=== PATIENT | male | born 1970 | race Two or more races ===

== ENCOUNTER 2024-02-22 23:39 | Emergency (ER) | payer OTHER, MEDICAID ==
[~2024-02-22] VITALS: Ht 170.2 cm; Wt 99.0 kg
[2024-02-23 00:03] VITALS: BP 134/62; PULSE 88; RESP 16; TEMP 98.7; O2SAT 98
[2024-02-23] MEDS ORDERED: CARB6.5S44 OT (02:27)
[2024-02-23] MEDS ORDERED: OFL50TS OT (02:27)
[2024-02-23] MEDS: HYDROcodone-ACET 5/325MG TAB PO ONE (02:49)
[2024-02-23] MEDS: IBUPROFEN 800 MG TAB PO ONE (02:54)
== END 2024-02-23 03:00 | disposition home or self-care (01) ==
LOC: ER 23:39
DX: H61.22 Impacted cerumen, left ear (principal)

== ENCOUNTER 2025-05-31 16:02 | Emergency (ER) | payer OTHER, MEDICAID ==
[~2025-05-31] VITALS: Ht 170.2 cm; Wt 109.6 kg
[~2025-05-31 16:02] MED LIST: CARB6.5S44 OT; OFL50TS OT
[2025-05-31 16:05] VITALS: BP 150/92; PULSE 88; RESP 12; TEMP 97.6; O2SAT 96
--- NOTE | 2025-05-31 16:43 | ED.PDOC ---
General HPI Comments HPI: This is a 54 year old male presenting to the ED with chief complaint of hematuria. Patient reports that he had an episode of hematuria this morning with associated lower abdominal cramping that occurred first. Patient relays that since then, all his symptoms have resolved, but his was worried and advised him to come to the ED. Patient states he is currently on dialysis and does not make much urine anyway. Patient denies any dysuria, flank pain, abdominal pain, fever, or chills. Past Medical History: HTN, HLD, DM, CKF Past Surgical History: Denies Social History: Denies smoking, ETOH, or drug use. Medications: Reviewed Allergies: NKDA WALKER: HEMATURIA. PAINLESS ONE TIME AFTER DIALYSIS TODAY. HPI: Poor Historian. REVIEW OF SYSTEMS: CONSTITUTIONAL: Denies acute: fever, diaphoresis, chills, generalized weakness. HEAD: Denies acute: headache, photophobia Eyes: Denies acute: Double vision, vision loss, eye pain, eye discharge. EARS: Denies acute: tinnitus, hearing loss, ear discharge, ear pain, THROAT: Denies acute: sore throat, swelling, difficulty swallowing , pain with swallowing, change in voice. NECK: Denies acute: neck pain, neck swelling, stiff neck. HEART: Denies acute : chest pain, palpitations, LUNGS: Denies acute: SOB, wheezing, cough, hemoptysis ABDOMEN: Denies acute: abdominal pain, Nausea, Vomiting, diarrhea, melena , hematemesis, hematochezia SKIN: Denies acute: rash, redness, lesions, itchiness. EXTREMITIES: Denies acute: calf pain, numbness, tingling, weakness, denies pain in extremity. Denies acute: Low back pain. Neuro: Denies acute: focal neurological deficit, motor or sensory focal neurological deficit, tremors, seizure like activity, confusion, dizziness, change in mental status, loss of bowel or bladder function, cauda equina like symptoms. : Denies acute: dysuria, flank pain, increase in urinary frequency. PSYCH: Denies acute: hallucination, suicidal ideation, homicidal ideation. PHYSICAL EXAM: General: ----no----acute distress, awake and alert. Head: normocephalic, atraumatic. No raccoon's eyes, no nunez sign. Neck: supple, trachea is midline, no swelling. Throat: Normal phonation. Eyes:, no erythema, no purulent discharge, no proptosis, no icterus. Heart: regular rate, regular rhythm, no significant murmur appreciated. Lungs: no apparent respiratory distress, Able to speak in full sentences. No wheezing, no rhonchi, no crackles. No stridors Clear to auscultation bilaterally. Abdomen: non tender to palpation, non distended, soft, no guarding, no rebound, + bowel sounds. Neuro: Awake, Alert, oriented to name, self, situation, follows commands GCS=15. Speech is normal. Skin: no petechia, no purpura, no cyanosis, non-pale, not jaundice. Lower extremities: --1/3 b/l - Pitting edema no deformity, no focal swelling, no calf TTP. Makes eye contact. moves all four extremities. Face: no apparent facial droop. Ambulating in the ED independently. ED COURSE: DISCLAIMER: This medical document was created using an electronic medical record system with voice recognition software and computerized dictation system. Although this document has been carefully reviewed, there might still be some phonetic and typographical errors. Occasional wrong-word or "sound-alike" substitutions may have occurred due to the inherent limitations of voice recognition software. These areas are purely typographical due to imperfections of the software programs and do not reflect any compromise in the patient's medical care. Please read the chart carefully and recognize, using context, where these substitutions have occurred. Chief Complaint: Urinary Time Seen by MD: 16:40 Reviewed notes: Medications, Allergies Allergies: Coded Allergies: NO KNOWN ALLERGIES (Unverified , 02/23/24) Home Meds Active Scripts Ofloxacin (Otic) (FLOXIN OTIC) [address], 1 DROP OT DAILY for 7 Days, #3.5 ML Instill 10 drops into left ear once daily x7 days Prov:ELIANE DIAZ 02/23/24 Carbamide Peroxide (Debrox) 6.5 % Alyssa, 6.5 % OT BID for 3 Days, #2 ML Instill 5 drops into left ear twice daily up to 3 days Prov:ELIANE DIAZ 02/23/24 Information Source: Patient Mode of Arrival: Ambulatory Was a procedure done? Was a procedure done?: No X-Ray, Labs, Meds, VS Vital Signs Date Time Temp Pulse Resp B/P (MAP) Pulse Ox O2 Delivery O2 Flow Rate FiO2 05/31/25 16:05 97.6 88 12 150/[address] [address] Ph: [phone] DIAGNOSTIC IMAGING Diagnostic Imaging Report : [id number] Signed PATIENT: RENAY MANZANO TYRONEACCT: [id number] UNIT: [id number] : 1970 LOC: ER ROOM / BED: / AGE / SEX: 54 / M ADM STATUS: REG ER SERVICE 41 ORDERING PHYSICIAN: JULIUS NIÑO DO PROCEDURE(s): ABPL - CT AB PEL WO CON-NO ORAL OR IV REASON: HEMATURIA, PAINLESS, ESRD ORDER NUMBER(s): [id number], ACCESSION NUMBER(s): [id number] EXAM: CT CT AB PEL WO CON-NO ORAL OR IV History: HEMATURIA, PAINLESS, ESRD Comparison Study: None TECHNIQUE: Multidetector CT of the abdomen was performed from lung bases to pubic symphysis. Imaging was performed without IV contrast. Axial, coronal and sagittal multiplanar reformats were obtained from the axial data set by the technologist. Radiation Dose Information: CT Dose: CTDI volume is 24.2 mGy. Dose-length product is 1400.59 mGy*cm FINDINGS: Evaluation of solid organs is limited due to lack of intravenous contrast use. FINDINGS: Lung Bases: No acute or significant lung base finding. Normal heart size. No pleural or pericardial effusion. Liver: The liver is normal in size. No focal lesions. Gallbladder and Biliary Tree: Unremarkable Spleen: Unremarkable Pancreas: The pancreas is grossly normal in appearance. Adrenal Glands: Unremarkable Kidneys: Multiple bilateral renal cysts noted. Renal vascular calcification seen.4 Bladder: Grossly unremarkable for degree of distention. Bowel: The stomach is grossly normal in appearance. Small bowel and colon are normal in caliber and distribution. The appendix is not visualized; however, no secondary findings of acute appendicitis identified. Ascites: Absent Lymphadenopathy: No mesenteric, retroperitoneal or periportal lymphadenopathy. Abdominal Wall and Mesentery: Unremarkable. Vasculature: The visualized abdominal aorta is normal in size and caliber. Evaluation of abdominal and pelvic vessels is limited due to lack of intravenous contrast. Pelvic Organs: Unremarkable Musculoskeletal: Severe degenerative disc disease is seen at L5-S1 with grade 1/4 anterolisthesis. Soft tissues: Unremarkable IMPRESSION: 1. Multiple renal cysts, possible polycystic kidney disease. 2. No acute intra-abdominal or pelvic disease. 3. Degenerative spine disease. 4. Radiation optimization: All CT scans at this facility use at least one of these dose optimization techniques: automated exposure control mA and/or kV adjustment per patient size (includes targeted exams where dose is matched to clinical indication) or iterative reconstruction. ATED BY: BENJAMIN OPON MD DICTATED DATE/TIME: 05/31/251742 SIGNED BY: BENJAMIN POON MD SIGNED DATE/TIME: 05/31/251742 CC: Time of 1ST Reevaluation: 17:40 Reevaluation 1ST: Improved Patient Education/Counseling: Diagnosis, Treatment Family Education/Counseling: No Family Present Departure 1 Departure Time of Disposition: 19:27 Critical Care Note Critical Care Time?: No I personally scribed for JULIUS NIÑO DO ([email or web address]) on 05/31/25 at 16:43. Electronically submitted by Felix Parikh ([email or web address]). I personally scribed for JULIUS NIÑO DO ([email or web address]) on 05/31/25 at 22:13. Electronically submitted by Edith Hill ([email or web address]). JULIUS NIÑO DO May 31, 2025 16:43
--- NOTE | 2025-05-31 17:45 | DVH ---
EXAM: CT CT AB PEL WO CON-NO ORAL OR IV History: HEMATURIA, PAINLESS, ESRD Comparison Study: None TECHNIQUE: Multidetector CT of the abdomen was performed from lung bases to pubic symphysis. Imaging was performed without IV contrast. Axial, coronal and sagittal multiplanar reformats were obtained from the axial data set by the technologist. Radiation Dose Information: CT Dose: CTDI volume is 24.2 mGy. Dose-length product is 1400.59 mGy*cm FINDINGS: Evaluation of solid organs is limited due to lack of intravenous contrast use. FINDINGS: Lung Bases: No acute or significant lung base finding. Normal heart size. No pleural or pericardial effusion. Liver: The liver is normal in size. No focal lesions. Gallbladder and Biliary Tree: Unremarkable Spleen: Unremarkable Pancreas: The pancreas is grossly normal in appearance. Adrenal Glands: Unremarkable Kidneys: Multiple bilateral renal cysts noted. Renal vascular calcification seen.4 Bladder: Grossly unremarkable for degree of distention. Bowel: The stomach is grossly normal in appearance. Small bowel and colon are normal in caliber and distribution. The appendix is not visualized; however, no secondary findings of acute appendicitis identified. Ascites: Absent Lymphadenopathy: No mesenteric, retroperitoneal or periportal lymphadenopathy. Abdominal Wall and Mesentery: Unremarkable. Vasculature: The visualized abdominal aorta is normal in size and caliber. Evaluation of abdominal and pelvic vessels is limited due to lack of intravenous contrast. Pelvic Organs: Unremarkable Musculoskeletal: Severe degenerative disc disease is seen at L5-S1 with grade 1/4 anterolisthesis. Soft tissues: Unremarkable IMPRESSION: 1. Multiple renal cysts, possible polycystic kidney disease. 2. No acute intra-abdominal or pelvic disease. 3. Degenerative spine disease. 4. Radiation optimization: All CT scans at this facility use at least one of these dose optimization techniques: automated exposure control mA and/or kV adjustment per patient size (includes targeted exams where dose is matched to clinical indication) or iterative reconstruction.
== END 2025-05-31 23:28 | disposition left against medical advice (07) ==
LOC: ER 16:02
DX: R31.9 Hematuria, unspecified (principal); R10.30 Lower abdominal pain, unspecified; I12.0 Hypertensive chronic kidney disease with stage 5 chronic kidney disease or end stage renal disease; E11.22 Type 2 diabetes mellitus with diabetic chronic kidney disease; N18.6 End stage renal disease; E78.5 Hyperlipidemia, unspecified; Z99.2 Dependence on renal dialysis; Z79.899 Other long term (current) drug therapy
CPT/HCPCS: 74176